=== PATIENT | female | born 1930 | race Caucasian/White ===

== ENCOUNTER → 2016-06-13 | Outpatient (CLI) | payer MEDICARE, OTHER ==
[~2016-06-13] MED LIST: AMLODIPINE BESY10 MG PO; CIPROFLOXACIN250 MG; CIPROFLOXACIN500 M1 PO; DAILY VITE1 EAC1 PO; EXTRA STRENGTH500 M1 PO; FISH OIL 1,0001 EA11 PO; LEVOTHYROXINE75 MCG PO; LISINOPRIL40 MG PO; LO-DOSE ASPIRIN81 M1 PO; LOPERAMIDE2 M1 PO; METOPROLOL SUCC50 MG PO; OMEPRAZOLE40 M1 PO; OXYBUTYNIN CHLO10 MG PO; ZOFRAN4 MG PO
== END | disposition home or self-care (01) ==
LOC: CDC 15:01
DX: R94.31 Abnormal electrocardiogram [ECG] [EKG] (principal); H25.11 Age-related nuclear cataract, right eye
CPT/HCPCS: 93000

== ENCOUNTER → 2016-07-02 | Outpatient (CLI) | payer MEDICARE, OTHER | END | disposition home or self-care (01) | LOC: CDC 11:00 | DX: R94.31 Abnormal electrocardiogram [ECG] [EKG] (principal); H25.11 Age-related nuclear cataract, right eye | CPT/HCPCS: 93000 ==

== ENCOUNTER 2017-09-29 15:42 | Inpatient (IN) | payer OTHER ==
[~2017-09-29] VITALS: Ht 160 cm; Wt 61.2 kg
[2017-09-29 16:43] LABS: HEMATOCRIT 35.6 % (36.0-46.0); MCHC 33.7 G/DL (30.0-36.0); PLATELET COUNT 184 K/uL (156-360); RBC DIS.WIDTH-CV 12.6 % (11.8-14.6); RBC DIS.WIDTH-SD 39.1 % (39-53); RED BLOOD COUNT 4.14 M/uL (3.80-5.20); WHITE BLOOD COUNT 4.4 K/uL (4.1-10.2)
[2017-09-29 16:52] LABS: ALBUMIN 3.9 g/dL (3.2-4.8); CHLORIDE 106 mEq/L (99-109); POTASSIUM 4.1 mEq/L (3.7-5.4); SODIUM 140 mEq/L (136-147)
[2017-09-29 16:54] LABS: GLUCOSE 135 mg/dL (70-99); TOTAL PROTEIN 6.6 g/dL (6.4-8.3)
[2017-09-29 16:56] LABS: TOTAL BILIRUBIN 1.5 mg/dL (0.0-1.0)
[2017-09-29 16:58] LABS: ALKALINE PHOSPHATASE 76 IU/L (3-129); CREATININE 0.8 mg/dL (0.6-1.3); GFR ESTIMATE (CALCULATED) > 59 mL/min/
[2017-09-29 16:59] LABS: UREA NITROGEN (BUN) 15 mg/dL (9-23)
[2017-09-29 17:00] LABS: AST (GOT) 16 IU/L (2-34)
[2017-09-29 17:01] LABS: ALT (GPT) 14 IU/L (3-49)
[2017-09-29 17:04] LABS: TROP-I INTERPRETATION NEGATIVE; TROPONIN-I < 0.01 ng/mL (0.0-0.30)
[2017-09-29 17:26] LABS: HDL CHOLESTEROL 49 MG/DL (Desirable>=50); LDL CHOLESTEROL 94 mg/dL (Desirable<100); NON-HDL CHOLESTEROL 113 mg/dL (Desirable<160); TOTAL CHOLESTEROL 162 mg/dL (Desirable<200); TRIGLYCERIDES 95 MG/DL (Normal: <150)
[2017-09-29 19:29] LABS: APPEARANCE CLEAR ((CLEAR)); BILIRUBIN NEGATIVE; BLOOD NEGATIVE; COLOR STRAW ((YELLOW)); GLUCOSE (STRIP) NEGATIVE; KETONES 5; LEUKOCYTES TRACE; NITRITE NEGATIVE; PROTEIN (STRIP) NEGATIVE; SPECIFIC GRAVITY 1.032 (1.000-1.030); UROBILINOGEN 0.2 MG/DL (0.2-1.0)
[2017-09-29 19:39] LABS: BACTERIA NONE SEEN /HPF; EPITHELIAL CELLS RARE /HPF; MUCUS TRACE /LPF; RED BLOOD CELLS 0-5 /HPF (0-5); UCUL ADDED? NO; WHITE BLOOD CELLS 0-5 /HPF (0-5)
[2017-09-29 23:02] LABS: THYROTROPIN (TSH) 0.44 MIU/L (0.4-5.5)
[2017-09-30] VITALS (7 sets, daily range): BP systolic 108–171; BP diastolic 57–78
[2017-09-30 06:01] LABS: HEMATOCRIT 36.6 % (36.0-46.0); HEMOGLOBIN 12.2 G/DL (11.9-15.5); MCH 28.2 PG (29.0-34.0); MCHC 33.3 G/DL (30.0-36.0); MCV 84.5 FL (83-99); PLATELET COUNT 181 K/uL (156-360); RBC DIS.WIDTH-CV 12.5 % (11.8-14.6); RBC DIS.WIDTH-SD 37.6 % (39-53); RED BLOOD COUNT 4.33 M/uL (3.80-5.20); WHITE BLOOD COUNT 4.2 K/uL (4.1-10.2)
[2017-09-30 06:29] LABS: ALBUMIN 3.7 G/DL (3.2-4.8); ALKALINE PHOSPHATASE 65 IU/L (3-129); ALT (GPT) 10 IU/L (3-49); AST (GOT) 13 IU/L (2-34); CHLORIDE 106 MEQ/L (99-109); CREATININE 0.6 MG/DL (0.6-1.3); GFR ESTIMATE (CALCULATED) > 59 mL/min/; POTASSIUM 3.8 MEQ/L (3.7-5.4); SODIUM 141 MEQ/L (136-147); TOTAL BILIRUBIN 1.3 MG/DL (0.0-1.0); UREA NITROGEN (BUN) 13 mg/dL (9-23)
[2017-09-30 06:30] LABS: GLUCOSE 94 mg/dL (70-99)
[2017-09-30 09:56] LABS: FOLIC ACID (FOLATE) > 22.0 NG/ML (5.0-22.0)
[2017-09-30 12:56] LABS: HEMOGLOBIN A1c (GLYCOHEMOGLOB) 5.2 % (Below 5.7)
[2017-10-01 04:23] VITALS: BP 161/72
[2017-10-01 07:15] VITALS: BP 142/69
[2017-10-01] MEDS ORDERED: TRIAMCINOLONE A15 GM TP (09:25)
[2017-10-01] MEDS ORDERED: ASPIRIN EC325 MG PO (09:25)
[2017-10-01] MEDS ORDERED: CYANOCOBALAM1000 MCG PO (09:25)
[2017-10-01] MEDS ORDERED: ATORVASTATIN CA40 MG PO (09:25)
== END 2017-10-01 11:00 | disposition home or self-care (01) | DRG 65 ==
LOC: EME 15:42 → 5SOUTH 22:12 → EDOF 22:12 → ENRESERV 22:14 → 5SOUTH 22:48
PROVIDERS: Nurse Practitioner Family; Physician Assistant
DX: I63.9 Cerebral infarction, unspecified (principal); R17 Unspecified jaundice; R01.1 Cardiac murmur, unspecified; R21 Rash and other nonspecific skin eruption; R29.704 NIHSS score 4; E89.0 Postprocedural hypothyroidism; I10 Essential (primary) hypertension; K21.9 Gastro-esophageal reflux disease without esophagitis; Z79.82 Long term (current) use of aspirin; Z87.891 Personal history of nicotine dependence
CPT/HCPCS: 70450; 70496; 70498; 70551; 71275; 80048; 80053; 80061; 81003; 82607; 82746; 83036; 84443; 84484; 85027; 92523 GN; 93005; 93306; 99281; 99285; J1644

== ENCOUNTER 2017-10-08 17:09 | Inpatient (IN) | payer OTHER ==
[~2017-10-08] VITALS: Ht 160 cm; Wt 60.6 kg
[~2017-10-08 17:09] MED LIST changes: +ASPIRIN EC325 MG PO; +ATORVASTATIN CA40 MG PO; +CYANOCOBALAM1000 MCG PO; +TRIAMCINOLONE A15 GM TP
[2017-10-08 18:32] LABS: HEMATOCRIT 34.9 % (36.0-46.0); MCH 28.9 PG (29.0-34.0); MCHC 34.4 G/DL (30.0-36.0); MCV 84.1 FL (83-99); PLATELET COUNT 197 K/uL (156-360); RBC DIS.WIDTH-CV 12.8 % (11.8-14.6); RBC DIS.WIDTH-SD 38.5 % (39-53); RED BLOOD COUNT 4.15 M/uL (3.80-5.20); WHITE BLOOD COUNT 5.6 K/uL (4.1-10.2)
[2017-10-08 18:40] LABS: ALBUMIN 4.1 g/dL (3.2-4.8)
[2017-10-08 18:41] LABS: CHLORIDE 103 mEq/L (99-109); POTASSIUM 3.9 mEq/L (3.7-5.4); SODIUM 139 mEq/L (136-147)
[2017-10-08 18:43] LABS: GLUCOSE 87 mg/dL (70-99); TOTAL PROTEIN 6.8 g/dL (6.4-8.3)
[2017-10-08 18:45] LABS: TOTAL BILIRUBIN 1.2 mg/dL (0.0-1.0)
[2017-10-08 18:46] LABS: ALKALINE PHOSPHATASE 70 IU/L (3-129)
[2017-10-08 18:47] LABS: CREATININE 0.8 mg/dL (0.6-1.3); GFR ESTIMATE (CALCULATED) > 59 mL/min/
[2017-10-08 18:48] LABS: AST (GOT) 23 IU/L (2-34); UREA NITROGEN (BUN) 20 mg/dL (9-23)
[2017-10-08 18:50] LABS: ALT (GPT) 24 IU/L (3-49)
[2017-10-08 18:56] LABS: APPEARANCE CLEAR ((CLEAR)); BILIRUBIN NEGATIVE; BLOOD SMALL; COLOR YELLOW ((YELLOW)); GLUCOSE (STRIP) NEGATIVE; KETONES NEGATIVE; LEUKOCYTES LARGE; NITRITE POSITIVE; PROTEIN (STRIP) NEGATIVE; SPECIFIC GRAVITY 1.009 (1.000-1.030); UROBILINOGEN 0.2 MG/DL (0.2-1.0)
[2017-10-08 19:05] LABS: BACTERIA NONE SEEN /HPF; EPITHELIAL CELLS NONE SEEN /HPF; MUCUS NONE SEEN /LPF; RED BLOOD CELLS 0-5 /HPF (0-5); WHITE BLOOD CELLS 15-20 /HPF (0-5)
[2017-10-08 19:42] LABS: THYROTROPIN (TSH) 0.72 MIU/L (0.4-5.5)
[2017-10-08] MEDS ORDERED: LITE COAT ASPI325 M1 PO (21:00)
[2017-10-08] MEDS ORDERED: B-121000 MC2 PO (21:01)
[2017-10-08] MEDS ORDERED: LIPITOR40 MG PO (21:01)
[2017-10-08] MEDS ORDERED: TOPROL XL50 MG PO (21:02)
[2017-10-08] MEDS ORDERED: RANITIDINE15 MG/1 ML PO (21:03)
[2017-10-08 22:05] VITALS: BP 180/79
[2017-10-09] VITALS (8 sets, daily range): BP systolic 129–183; BP diastolic 62–81
[2017-10-09 12:30] LABS: TROP-I INTERPRETATION NEGATIVE; TROPONIN-I 0.01 ng/mL (0.0-0.30)
[2017-10-09 15:57] LABS: TROP-I INTERPRETATION NEGATIVE; TROPONIN-I 0.02 ng/mL (0.0-0.30)
[2017-10-09 20:43] LABS: TROP-I INTERPRETATION NEGATIVE; TROPONIN-I 0.01 ng/mL (0.0-0.30)
[2017-10-10 04:32] VITALS: BP 155/72
[2017-10-10 05:58] LABS: BASOPHIL (%) 0.7 % (0-1); EOSINOPHIL (%) 4.9 % (0-5); EOSINOPHIL COUNT 0.2 K/uL (0-0.3); HEMATOCRIT 33.3 % (36.0-46.0); HEMOGLOBIN 11.4 G/DL (11.9-15.5); LYMPHOCYTE (%) 34.5 % (15-42); LYMPHOCYTE COUNT 1.4 K/uL (1.0-2.8); MCH 28.4 PG (29.0-34.0); MCHC 34.2 G/DL (30.0-36.0); MCV 82.8 FL (83-99); MONOCYTE (%) 6.8 % (3-12); MONOCYTE COUNT 0.3 K/uL (0-0.8); NEUTROPHIL (%) 53.1 % (45-76); NEUTROPHIL COUNT 2.2 K/uL (1.8-6.4); PLATELET COUNT 202 K/uL (156-360); RBC DIS.WIDTH-CV 12.6 % (11.8-14.6); RBC DIS.WIDTH-SD 37.8 % (39-53); RED BLOOD COUNT 4.02 M/uL (3.80-5.20); WHITE BLOOD COUNT 4.1 K/uL (4.1-10.2)
[2017-10-10 06:15] LABS: ALBUMIN 3.6 G/DL (3.2-4.8); ALKALINE PHOSPHATASE 55 IU/L (3-129); ALT (GPT) 15 IU/L (3-49); AST (GOT) 18 IU/L (2-34); CHLORIDE 104 MEQ/L (99-109); CREATININE 0.7 MG/DL (0.6-1.3); GFR ESTIMATE (CALCULATED) > 59 mL/min/; GLUCOSE 95 mg/dL (70-99); POTASSIUM 3.5 MEQ/L (3.7-5.4); SODIUM 139 MEQ/L (136-147); TOTAL BILIRUBIN 0.9 MG/DL (0.0-1.0); TOTAL PROTEIN 5.9 G/DL (6.4-8.3); UREA NITROGEN (BUN) 10 mg/dL (9-23)
[2017-10-10 07:38] VITALS: BP 173/79
[2017-10-10 11:39] VITALS: BP 134/72
[2017-10-10] MEDS ORDERED: CEFTIN500 MG PO (12:55)
== END 2017-10-10 14:43 | disposition home or self-care (01) | DRG 65 ==
LOC: EME 17:09 → EDOF 20:45 → ENRESERV 20:46 → 4SOUTH 21:50
PROVIDERS: Emergency Medicine; Hospitalist
DX: I63.532 Cerebral infarction due to unspecified occlusion or stenosis of left posterior cerebral artery (principal); R26.0 Ataxic gait; R35.0 Frequency of micturition; I10 Essential (primary) hypertension; K21.9 Gastro-esophageal reflux disease without esophagitis; E78.5 Hyperlipidemia, unspecified; N39.0 Urinary tract infection, site not specified; I16.0 Hypertensive urgency; E89.0 Postprocedural hypothyroidism; R41.3 Other amnesia; B96.20 Unspecified Escherichia coli [E. coli] as the cause of diseases classified elsewhere; R47.01 Aphasia; R29.703 NIHSS score 3; J45.909 Unspecified asthma, uncomplicated; I49.3 Ventricular premature depolarization; Z85.828 Personal history of other malignant neoplasm of skin; Z86.73 Personal history of transient ischemic attack (TIA), and cerebral infarction without residual deficits; Z90.49 Acquired absence of other specified parts of digestive tract; Z87.891 Personal history of nicotine dependence; E03.9 Hypothyroidism, unspecified
CPT/HCPCS: 70450; 70551; 71045; 80053; 81003; 83605; 84443; 84484; 85025; 85027; 87040; 87077; 87086; 87186; 93005; 99281; 99284; G0378; J0696; J1644; J2405; J7030

== ENCOUNTER 2017-10-13 15:06 | Inpatient (IN) | payer OTHER ==
[~2017-10-13] VITALS: Ht 161.3 cm; Wt 56.0 kg
[~2017-10-13 15:06] MED LIST changes: +B-121000 MC2 PO; +CEFTIN500 MG PO; +LIPITOR40 MG PO; +LITE COAT ASPI325 M1 PO; +RANITIDINE15 MG/1 ML PO; +TOPROL XL50 MG PO
[2017-10-13 16:00] VITALS: BP 158/70
[2017-10-13 23:18] VITALS: BP 139/60
[2017-10-14 05:16] VITALS: BP 162/70
[2017-10-14 06:34] LABS: HEMATOCRIT 34.5 % (36.0-46.0); HEMOGLOBIN 11.6 G/DL (11.9-15.5); MCH 28.4 PG (29.0-34.0); MCHC 33.6 G/DL (30.0-36.0); MCV 84.6 FL (83-99); PLATELET COUNT 205 K/uL (156-360); RBC DIS.WIDTH-CV 13.2 % (11.8-14.6); RBC DIS.WIDTH-SD 40.2 % (39-53); RED BLOOD COUNT 4.08 M/uL (3.80-5.20); WHITE BLOOD COUNT 4.9 K/uL (4.1-10.2)
[2017-10-14 07:00] LABS: ALBUMIN 3.7 G/DL (3.2-4.8); ALKALINE PHOSPHATASE 55 IU/L (3-129); ALT (GPT) 34 IU/L (3-49); AST (GOT) 29 IU/L (2-34); CHLORIDE 104 MEQ/L (99-109); CREATININE 0.7 MG/DL (0.6-1.3); GFR ESTIMATE (CALCULATED) > 59 mL/min/; GLUCOSE 94 mg/dL (70-99); POTASSIUM 4.5 MEQ/L (3.7-5.4); SODIUM 140 MEQ/L (136-147); TOTAL BILIRUBIN 1.1 MG/DL (0.0-1.0); TOTAL PROTEIN 5.6 G/DL (6.4-8.3); UREA NITROGEN (BUN) 13 mg/dL (9-23)
[2017-10-14 16:02] VITALS: BP 164/74
[2017-10-14 17:53] VITALS: BP 157/70
[2017-10-14 21:53] VITALS: BP 161/70
[2017-10-15 05:15] VITALS: BP 133/60
[2017-10-15 15:47] VITALS: BP 112/56
[2017-10-16 05:53] VITALS: BP 153/68
[2017-10-16 15:06] VITALS: BP 130/64
[2017-10-17 01:54] LABS: APPEARANCE CLEAR ((CLEAR)); BILIRUBIN NEGATIVE; BLOOD SMALL; COLOR YELLOW ((YELLOW)); GLUCOSE (STRIP) NEGATIVE; KETONES NEGATIVE; LEUKOCYTES NEGATIVE; NITRITE NEGATIVE; PROTEIN (STRIP) NEGATIVE; SPECIFIC GRAVITY 1.011 (1.000-1.030); UROBILINOGEN 0.2 MG/DL (0.2-1.0)
[2017-10-17 03:27] LABS: BACTERIA NONE SEEN /HPF; EPITHELIAL CELLS NONE SEEN /HPF; MUCUS NONE SEEN /LPF; RED BLOOD CELLS 0-5 /HPF (0-5); WHITE BLOOD CELLS 0-5 /HPF (0-5)
[2017-10-17 06:24] VITALS: BP 135/65
[2017-10-17 15:25] VITALS: BP 143/67
[2017-10-18 04:57] VITALS: BP 133/61
[2017-10-18 16:02] VITALS: BP 120/59
[2017-10-19 04:59] VITALS: BP 156/73
[2017-10-19 07:25] VITALS: BP 126/60
[2017-10-19] MEDS ORDERED: AMLODIPINE BESY10 MG PO (12:35)
[2017-10-19 15:44] VITALS: BP 127/60
[2017-10-20 05:05] VITALS: BP 139/65
== END 2017-10-20 14:45 | disposition home health service (06) | DRG 57 ==
LOC: 3WEST 15:06 → ENPENDDIS 10-20 → 3WEST 10-20 14:45
PROVIDERS: Family Medicine Sports Medicine; Physical Medicine & Rehabilitation Pain Medicine
PROC: F07M0ZZ Range of Motion and Joint Mobility Treatment of Musculoskeletal System - Whole Body (ICD-10-PCS; principal; 2017-10-13)
DX: I69.318 Other symptoms and signs involving cognitive functions following cerebral infarction (principal); R41.0 Disorientation, unspecified; I69.398 Other sequelae of cerebral infarction; R42 Dizziness and giddiness; R26.81 Unsteadiness on feet; R53.1 Weakness; N39.0 Urinary tract infection, site not specified; B96.20 Unspecified Escherichia coli [E. coli] as the cause of diseases classified elsewhere; I10 Essential (primary) hypertension; E03.9 Hypothyroidism, unspecified; E78.5 Hyperlipidemia, unspecified; K21.9 Gastro-esophageal reflux disease without esophagitis; E87.6 Hypokalemia; D64.9 Anemia, unspecified; F03.90 Unspecified dementia, unspecified severity, without behavioral disturbance, psychotic disturbance, mood disturbance, and anxiety; Z85.828 Personal history of other malignant neoplasm of skin; Z90.49 Acquired absence of other specified parts of digestive tract; Z60.2 Problems related to living alone; Z79.82 Long term (current) use of aspirin
CPT/HCPCS: 80053; 81003; 85027; 87086; 92507 GN; 92523 GN; 97110 GO; 97530 GP; G0515 GN